=== PATIENT | male | born 1985 | race African-American/Black ===

== ENCOUNTER 2024-03-06 08:16 | Emergency (ER) | payer SELFPAY ==
[~2024-03-06] VITALS: Ht 175.3 cm; Wt 77.1 kg
[2024-03-06 08:24] VITALS: BP 136/66
[2024-03-06 08:30] VITALS: BP 143/100
[2024-03-06] MEDS ORDERED: KETOROLAC TROMETHAMINE 30 MG/ML SDV IV ONE (08:30)
[2024-03-06] MEDS ORDERED: METOCLOPRAMIDE HCL 10 MG/2 ML SDV IV ONE (08:30)
[2024-03-06] MEDS ORDERED: DiphenhydrAMINE HCL 50 MG/ML SDV IV ONE (08:30)
[2024-03-06] MEDS ORDERED: SODIUM CHLORIDE 0.9% 1,000 ML IV ONE (08:30)
[2024-03-06 08:45] VITALS: BP 142/85
[2024-03-06 08:56] LABS: BASO% 0.2 % (0-3); EOS% 2.3 % (0-8); HEMATOCRIT 47.6 % (39.0-50.0); HEMOGLOBIN 15.8 g/dl (14.0-18.0); IMMATURE GRANULOCYTES 0.2 % (0.0-5.0); LYMPH% 22.3 % (15-41); MEAN CELL VOLUME 93.7 fL CALC (80.0-100.0); MEAN CORPUSCULAR HGB 31.1 pG CALC (26.0-32.0); MEAN CORPUSCULAR HGB CONC 33.2 g/dL CAL (32.0-36.0); MONO% 7.8 % (2-13); NEUT# 6.5 thou/uL (1.82-7.42); NEUT% 67.2 % (42-76); RED BLOOD COUNT 5.08 mill/uL (4.70-6.10); RED CELL DISTRI WIDTH 12.2 % (11.5-15.5)
[2024-03-06 09:07] LABS: ALBUMIN 4.7 g/dL (3.2-5.0); BILIRUBIN, TOTAL 0.6 mg/dL (0.2-1.3); CREATININE 1.2 mg/dL (0.7-1.3); POTASSIUM 4.6 mmol/l (3.5-5.1); TOTAL PROTEIN 7.8 g/dL (6.3-8.2)
[2024-03-06 09:09] VITALS: BP 121/79
[2024-03-06 09:16] VITALS: BP 143/86
[2024-03-06] MEDS ORDERED: ALPRAZolam 0.5 MG/TAB PO ONE (09:50)
[2024-03-06] MEDS ORDERED: DEXAMETHASONE SOD. PHOSPHATE 10 MG/ML VIAL IV ONE (09:55)
== END 2024-03-06 10:21 | disposition home or self-care (01) | DRG 103 ==
LOC: ED 08:16
PROVIDERS: Family Medicine
DX: R51.9 Headache, unspecified (principal)